=== PATIENT | female | born 2000 | race Caucasian/White ===

== ENCOUNTER 2020-02-22 10:23 | Emergency (ER) | payer SELFPAY ==
[~2020-02-22] VITALS: Ht 157.5 cm; Wt 81.6 kg
--- NOTE | 2020-02-22 10:28 | NUR ---
PT TAKEN TO BED 5.
[2020-02-22 10:32] VITALS: BP 115/79
--- NOTE | 2020-02-22 10:39 | NUR ---
19 Y/O FEMALE C/O LEFT EYE BURNING/SWELLING/REDNESS/ MILD ITCHINESS X1 WEEK. PT STATES TODAY WHEN SHE WOKE UP HER EYE WAS VERY SWOLLEN, DENIES ANY CHANGES TO VISION. DENIES ANY RECENT TRAUMA. PT STATES SHE SOMETIMES FALLS ASLEEP WITH EYE MAKEUP. EYE IS SWOLLEN, RED, AND PATIENT STATES BURNING IS 8/10. FOR ONE WEEK, PT STATES SHE HAS BEEN TAKING PINK EYE RELIEF DROPS WITH NO RELIEF. DENIES ANY EAR PAIN, SORE THROAT OR COUGH
[2020-02-22 11:14] VITALS: BP 115/79
--- NOTE | 2020-02-22 11:15 | NUR ---
Patient discharged with v/s stable. Written and verbal after care instructions given and explained. Patient alert, oriented and verbalized understanding of instructions. Ambulatory with steady gait. All questions addressed prior to discharge. ID band removed. Patient advised to follow up with PMD. Rx of POLYTRIM given. Patient educated on indication of medication including possible reaction and side effects. Opportunity to ask questions provided and answered.
== END 2020-02-22 11:15 | disposition home or self-care (01) ==
LOC: MED 10:23
DX: H10.89 Other conjunctivitis (principal)
CPT/HCPCS: 99284

== ENCOUNTER 2020-02-29 02:00 | Emergency (ER) | payer SELFPAY ==
[~2020-02-29] VITALS: Ht 157.5 cm; Wt 81.6 kg
[2020-02-29 02:33] VITALS: BP 136/71
[2020-02-29 03:00] VITALS: BP 136/71
--- NOTE | 2020-02-29 03:01 | NUR ---
DR. REGALADO ASSESSED,EVALUATED, TREATED AND DISCHARGED PT. ASSISTING DOCTOR REMOVING PATIENT FROM SYSTEM.
== END 2020-02-29 03:01 | disposition home or self-care (01) ==
LOC: MED 02:00
DX: H10.89 Other conjunctivitis (principal); R03.0 Elevated blood-pressure reading, without diagnosis of hypertension
CPT/HCPCS: 99283

== ENCOUNTER 2021-12-04 12:53 | Emergency (ER) | payer MEDICAID ==
[~2021-12-04] VITALS: Ht 157.5 cm; Wt 91.6 kg
[2021-12-04 13:01] VITALS: BP 113/61
[2021-12-04] MEDS ORDERED: NACL 0.9% 1,000 ML IV ONE (13:05)
[2021-12-04] MEDS ORDERED: ONDANSETRON 4 MG/2 ML VIAL IVP ONE (13:05)
[2021-12-04] MEDS ORDERED: KETOROLAC 30 MG/ML VIAL IVP ONE (13:05)
--- NOTE | 2021-12-04 13:23 | NUR ---
Dr. Mcelroy is evaluating patient at bedside
--- NOTE | 2021-12-04 13:25 | NUR ---
21 y/o F BIB self from home c/o epigastric with associated nausea and vomiting. Patient A&Ox4, ambulatory, states 4 episodes of vomiting prior to arrival. Patient reports epigastic pain 5/10, sharp/intermittent, radiating to generalized abdomen region. Abd tender to palpation. Patient states hydration prior to arrival; denies medications prior to arrival. Denies constipation, diarrhea, chest pain, dizziness, headache. Last BM: yesterday; normal. LMP: 11/29/21. Bed locked in lowest position, side rails x 1. PMH/Sx/Meds: Denies NKDA
[2021-12-04] MEDS ORDERED: ONDA8TAB87 PO (13:44)
[2021-12-04] MEDS ORDERED: IBUP-2213 PO (13:44)
--- NOTE | 2021-12-04 14:09 | NUR ---
Patient discharged with v/s stable. Written and verbal after care instructions given and explained for Nausea and Vomiting, Abdominal Pain. Patient alert, oriented and verbalized understanding of instructions. Ambulatory with steady gait. All questions addressed prior to discharge. ID band removed. Patient advised to follow up with PMD. Rx of Ibuprofen, Zofran ODT given. Patient educated on indication of medication including possible reaction and side effects. Opportunity to ask questions provided and answered.
== END 2021-12-04 14:09 | disposition home or self-care (01) ==
LOC: MED 12:53
DX: R10.13 Epigastric pain (principal); R11.2 Nausea with vomiting, unspecified
CPT/HCPCS: 81002; 81025; 96361; 96374; 96375; 99284; J1885; J2405; J7030